=== PATIENT | male | born 1985 | race Caucasian/White ===

== ENCOUNTER 2017-02-09 22:40 | Emergency (ER) | payer OTHER ==
[2017-02-09 23:00] VITALS: BP 117/81
--- NOTE | 2017-02-09 23:37 | PHYS DOC ---
Past History Past Medical History: Seizure, Other Past Surgical History: Other Alcohol Use: None Drug Use: None Adult General Chief Complaint Chief Complaint: FOOT INJURY PAIN [facility] HPI Patient is a 31 year old M who presents with left ankle pain. Patient states his walking out to his mailbox to get his mail and tripped over a tree branch rolling his left ankle. 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 Patient denies any other injuries. Pertinent exam findings: Positive tenderness palpation left ankle with minimal swelling and a good dorsal pedis pulse and neurovascular intact ER course: Patient was seen and examined x-ray of the ankle was ordered 2339: Updated patient on x-ray results and discussed RICE with the patient. Recommended follow-up with PCP in one to 2 days and discussed [id number] pain management Pertinent results X-ray of the left ankle shows no fracture MDM: After reviewing the chart, CC/HPI/PMH, physical exam, [radiological results], I do not believe the patient sustained a significant traumatic injury to the left ankle warranting further workup and/or admission at this time. Patient already wears a brace on his left ankle therefore encouraged him to keep the brace on and follow up with PCP in one to 2 days. Recommended [id number] pain medication. patient stable for discharge. Additional verbal discharge instructions were provided to the patient and that if symptoms get worse or any new symptoms Arise that are worrisome to the patient he is to return to the emergency room immediately Review of Systems Review of Systems Constitutional: Denies fever or chills [] Eyes: Denies change in visual acuity, redness, or eye pain [] HENT: Denies nasal congestion or sore throat [] Respiratory: Denies cough or shortness of breath [] Cardiovascular: No additional information not addressed in HPI [] GI: Denies abdominal pain, nausea, vomiting, bloody stools or diarrhea [] : Denies dysuria or hematuria [] Musculoskeletal: Denies back pain or joint pain [] Integument: Denies rash or skin lesions [] Neurologic: Denies headache, focal weakness or sensory changes [] Endocrine: Denies polyuria or polydipsia [] Allergies Allergies Allergies Coded Allergies Type Severity Reaction Last Updated Verified Penicillins Allergy Unknown 09/26/16 Yes Physical Exam Physical Exam Constitutional: Well developed, well nourished, no acute distress, non-toxic appearance. [] HENT: Normocephalic, atraumatic, bilateral external ears normal, oropharynx moist, no oral exudates, nose normal. [] Eyes: PERRLA, EOMI, conjunctiva normal, no discharge. [] Neck: Normal range of motion, no tenderness, supple, no stridor. [] Cardiovascular:Heart rate regular rhythm, no murmur [] Lungs & Thorax: Bilateral breath sounds clear to auscultation [] Abdomen: Bowel sounds normal, soft, no tenderness, no masses, no pulsatile masses. [] Skin: Warm, dry, no erythema, no rash. [] Back: No tenderness, no CVA tenderness. [] Extremities: No tenderness, no cyanosis, no clubbing, ROM intact, no edema. [] Neurologic: Alert and oriented X 3, normal motor function, normal sensory function, no focal deficits noted. [] Psychologic: Affect normal, judgement normal, mood normal. [] EKG EKG [] Radiology/Procedures Radiology/Procedures X-ray of the left ankle no obvious fracture [] Course & Med Decision Making Course & Med Decision Making Pertinent Labs and Imaging studies reviewed. (See chart for details) [] Dragon Disclaimer Dragon Disclaimer This chart was dictated in whole or in part using Voice Recognition software in a busy, high-work load, and often noisy Emergency Department environment. It may contain unintended and wholly unrecognized errors or omissions. Departure Departure: Impression: Primary Impression: Left ankle pain Disposition: 01 HOME, SELF-CARE Condition: STABLE Referrals: KATHARINA RAO (PCP) Patient Instructions: Ankle Sprain Additional Instructions: Please follow up with her family doctor next one to 2 days Problem Qualifiers Primary Impression: Left ankle pain Chronicity: acute Qualified Codes: M25.572 - Pain in left ankle and joints of left foot PAULO ADHIKARI DO Feb 09, 2017 23:36
--- NOTE | 2017-02-10 08:47 | RAD ---
Left ankle, 3 views, 02/09/2017: History: Severe ankle pain, injury No fracture or dislocation is identified. The soft tissues are unremarkable. IMPRESSION: No significant abnormality is detected.
== END 2017-02-09 23:50 | disposition home or self-care (01) ==
LOC: ER 22:40
DX: M25.572 Pain in left ankle and joints of left foot (principal); Z88.0 Allergy status to penicillin; W22.8XXA Striking against or struck by other objects, initial encounter; Y93.01 Activity, walking, marching and hiking; Y99.8 Other external cause status; Y92.89 Other specified places as the place of occurrence of the external cause
CPT/HCPCS: 73610; 99284

== ENCOUNTER 2017-03-26 20:54 | Emergency (ER) | payer OTHER ==
[~2017-03-26] VITALS: Ht 175.3 cm; Wt 61.6 kg
--- NOTE | 2017-03-26 21:05 | PHYS DOC ---
Past History Past Medical History: Seizure, Other Additional Past Medical Histor: Cerebral Palsy; chronic pain (legs) Past Surgical History: No Surgical History Smoking: Cigarettes Alcohol Use: None Drug Use: None Adult General Chief Complaint Chief Complaint: RIB PAIN HPI HPI Patient is a 31 year old male who presents with right rib pain. Approx 30 min ago he landed on a log to the right side. He was carrying a log and then dropped the log. It rolled down the hill and he went "down on it on my right ribs." No difficulty breathing. No loss of consciousness. No other complaints or injuries. No abdominal pain. Last seizure 3 weeks ago. Denies seizure today Review of Systems Review of Systems Constitutional: Denies fever or chills Eyes: Denies change in visual acuity, redness, or eye pain HENT: Denies nasal congestion or sore throat Respiratory: Denies cough or shortness of breath Cardiovascular: rib pain as noted; no anterior chest pain; GI: Denies abdominal pain, nausea, vomiting, bloody stools or diarrhea : Denies dysuria or hematuria Musculoskeletal: Denies back pain or joint pain Integument: Denies rash or skin lesions Neurologic: Denies headache, focal weakness or sensory changes Allergies Allergies Allergies Coded Allergies Type Severity Reaction Last Updated Verified Penicillins Allergy Unknown 09/26/16 Yes Physical Exam Physical Exam Constitutional: Well developed, well nourished, no acute distress, non-toxic appearance. HENT: Normocephalic, atraumatic, bilateral external ears normal, oropharynx moist, no oral exudates, nose normal. Eyes: PERRLA, EOMI, conjunctiva normal, no discharge. Neck: Normal range of motion, supple; non tender to palpation of cervical spine. no stridor. Cardiovascular:Heart rate regular rhythm, no murmur Lungs & Thorax: Bilateral breath sounds clear to auscultation, tenderness to right lateral chest wall, NO CREPITANCE OR SUBCUTANEOUS AIR; No palpable defect ; small reddened area noted Abdomen: Bowel sounds normal, soft, no tenderness, no masses, no pulsatile masses. Skin: Warm, dry, no erythema, no rash. Back: No tenderness, no CVA tenderness. Extremities: No tenderness, no cyanosis, no clubbing, ROM intact, no edema. Neurologic: Alert and oriented X 3, normal motor function, normal sensory function, no focal deficits noted. Psychologic: Affect normal, judgement normal, mood normal. Current Patient Data Vital Signs Vital Signs Date Time Temp Pulse Resp B/P (MAP) Pulse Ox O2 Delivery O2 Flow Rate FiO2 03/26/17 20:54 98.3 64 22 98 Room Air Radiology/Procedures Radiology/Procedures Rib films interpreted by myself at 2115 PM show no fracture; no pneumothorax and no pleural effusion Course & Med Decision Making Course & Med Decision Making Reviewed KTRACS: 02/12/2017 1 02/11/2017 HYDROCODON-ACETAMINOPHEN 5-325 15.0 12/05/2016 1 12/05/2016 HYDROCODON-ACETAMINOPH 7.5-325 60.0 11/04/2016 1 11/04/2016 HYDROCODON-ACETAMINOPH 7.5-325 60.0 10/06/2016 1 10/06/2016 HYDROCODON-ACETAMINOPH 7.5-325 60.0 09/27/2016 1 09/26/2016 HYDROCODON-ACETAMIN isOPH 7.5-325 12.0 09/14/2016 2 09/14/2016 ACETAMINOPHEN-COD #3 TABLET 15.0 09/01/2016 1 08/31/2016 HYDROCODON-ACETAMINOPHEN 5-325 8.0 Patient with no evidence of intra-thoracic injury. Rx Naprosyn provided. He did request narcotic pain medication but informed him that those meds will have to be refilled by his PCP or pain management physician. Dragon Disclaimer Dragon Disclaimer This chart was dictated in whole or in part using Voice Recognition software in a busy, high-work load, and often noisy Emergency Department environment. It may contain unintended and wholly unrecognized errors or omissions. Departure Departure: Impression: Primary Impression: Rib pain on right side Additional Impression: Chest wall contusion Disposition: HOME, SELF-CARE Condition: GOOD Referrals: LEXI SMITH MD (PCP) Patient Instructions: Chest Contusion Scripts Naproxen (NAPROSYN) 500 Mg Tablet 1 TAB PO BID, #30 TAB 1 Refill Prov: LINDA GARZA MD 03/26/17 Problem Qualifiers LINDA GARZA MD Mar 26, 2017 21:05
[2017-03-26 21:31] VITALS: BP 127/77
[2017-03-26] MEDS ORDERED: NAPR500T PO (21:38)
--- NOTE | 2017-03-27 08:15 | RAD ---
Right RIBS, 3 views, 03/26/2017: History: Fall, injury, pain No fracture or rib abnormality is detected. No underlying right lung infiltrate, pneumothorax or hemothorax is seen. IMPRESSION: No significant right rib abnormality is detected.
== END 2017-03-26 21:43 | disposition home or self-care (01) ==
LOC: ER 20:54
DX: S20.211A Contusion of right front wall of thorax, initial encounter (principal); G89.29 Other chronic pain; G80.9 Cerebral palsy, unspecified; F17.210 Nicotine dependence, cigarettes, uncomplicated; Z88.0 Allergy status to penicillin; W19.XXXA Unspecified fall, initial encounter; Y93.89 Activity, other specified; Y99.8 Other external cause status; Y92.89 Other specified places as the place of occurrence of the external cause
CPT/HCPCS: 71100; 99284